=== PATIENT | female | born 1960 | race American Indian/Alaskan Native ===

== ENCOUNTER 2021-11-27 08:37 | Emergency (ER) | payer BC, OTHER ==
[2021-11-27] MEDS ORDERED: IBUPROFEN 600 MG TAB PO ONE (10:34)
[2021-11-27] MEDS ORDERED: ACETAMINOPHEN 325 MG TAB PO ONE (10:34)
--- NOTE | 2021-11-27 10:34 | Emergency Department Report ---
ED Fall HPI - General Chief Complaint: Fall Stated Complaint: FALL Time Seen by Provider: 11/27/21 09:55 Source: patient Mode of arrival: Ambulatory - History of Present Illness Initial Comments: 61 -[place] female with a past medical history of hypertension, hyperlipidemia, CVA, MA/CAD status post stent placement presents to the ER today with complaints of low back pain after accidental fall. Patient states that this occurred this morning. She states that she was trying to get out of her car when her right knee gave out causing her to lose her balance and fall. She states that she fell onto the left side. She reports no head injury. She states that since the fall she been having pain in her lower back. She states that the pain is worse with any movement. She states that she is never had issues with her back in the past. She is not currently on any blood thinners. She reports no bowel or bladder incontinence. She denies any saddle anesthesia, lower extremity weakness, abdominal pain or chest pain. MD Complaint: fall -: Sudden, This morning - Related Data Home Medications Medication Instructions Recorded Confirmed Last Taken FLUoxetine [PROzac] 10 mg PO QDAY 01/17/15 01/17/15 Unknown Pravastatin [Pravachol] 20 mg PO QHS 01/17/15 01/17/15 Unknown carvediloL [Coreg] 25 mg PO BID 01/17/15 01/17/15 Unknown lisinopriL [Zestril] 40 mg PO QDAY 01/17/15 01/17/15 Unknown Previous Rx's Medication Instructions Recorded Last Taken Type Butalb/Acetamin/Caff 50-325-40 1 each PO Q4H PRN #30 tablet 01/17/15 Unknown Rx [Fioricet] Ondansetron [Zofran Odt] 4 mg PO Q8HR PRN #30 tab.rapdis 01/17/15 Unknown Rx Acetaminophen/Codeine [Tylenol 1 tab PO Q6H PRN #12 tab 11/27/21 Unknown Rx /Codeine # 3 tab] Ibuprofen [Motrin] 400 mg PO Q8H PRN #30 tablet 11/27/21 Unknown Rx Metaxalone [Skelaxin] 800 mg PO TID #30 tablet 11/27/21 Unknown Rx Allergies Allergy/AdvReac Type Severity Reaction Status Date / Time diphenhydramine HCl Allergy Swelling Verified 01/17/15 10:20 [From Benadryl] ED Review of Systems ROS: Stated complaint: FALL Other details as noted in HPI Comment: All other systems reviewed and negative Constitutional: denies: chills, fever Eyes: denies: eye pain, eye discharge, vision change ENT: denies: ear pain, throat pain, dental pain, hearing loss, epistaxis, congestion Respiratory: denies: cough, shortness of breath, SOB with exertion, SOB at rest, wheezing Cardiovascular: denies: chest pain, palpitations, dyspnea on exertion, edema, syncope, paroxysmal nocturnal dyspnea Gastrointestinal: denies: abdominal pain, nausea, diarrhea, constipation, hematemesis, melena, hematochezia Genitourinary: denies: urgency, dysuria, frequency, hematuria, discharge, abnormal menses, dyspareunia Musculoskeletal: back pain Skin: denies: rash, lesions, change in color, change in hair/nails, pruritus Neurological: abnormal gait. denies: headache, weakness, numbness, paresthesias, confusion Psychiatric: denies: anxiety, depression, auditory hallucinations, visual hallucinations, homicidal thoughts, suicidal thoughts Hematological/Lymphatic: denies: easy bleeding, easy bruising, swollen glands ED Past Medical Hx - Past Medical History Hx Hypertension: Yes Hx CVA: Yes Hx Congestive Heart Failure: Yes - Surgical History Additional Surgical History: hysterectomy - Social History Smoking Status: Current Every Day Smoker Substance Use Type: None - Medications Home Medications: Home Medications Medication Instructions Recorded Confirmed Last Taken Type Butalb/Acetamin/Caff 50-325-40 1 each PO Q4H PRN #30 tablet 01/17/15 Unknown Rx [Fioricet] FLUoxetine [PROzac] 10 mg PO QDAY 01/17/15 01/17/15 Unknown History Ondansetron [Zofran Odt] 4 mg PO Q8HR PRN #30 tab.rapdis 01/17/15 Unknown Rx Pravastatin [Pravachol] 20 mg PO QHS 01/17/15 01/17/15 Unknown History carvediloL [Coreg] 25 mg PO BID 01/17/15 01/17/15 Unknown History lisinopriL [Zestril] 40 mg PO QDAY 01/17/15 01/17/15 Unknown History Acetaminophen/Codeine [Tylenol 1 tab PO Q6H PRN #12 tab 03/01/22 Unknown Rx /Codeine # 3 tab] Ibuprofen [Motrin] 400 mg PO Q8H PRN #30 tablet 11/27/21 Unknown Rx Metaxalone [Skelaxin] 800 mg PO TID #30 tablet 11/27/21 Unknown Rx ED Physical Exam - General Limitations: No Limitations General appearance: alert, in no apparent distress - Head Head exam: Present: atraumatic, normocephalic, normal inspection - Eye Eye exam: Present: normal appearance, PERRL, EOMI Pupils: Present: normal accommodation - Respiratory Respiratory exam: Present: normal lung sounds bilaterally. Absent: respiratory distress, wheezes, rales, rhonchi, stridor - Cardiovascular Cardiovascular Exam: Present: regular rate, normal rhythm, normal heart sounds - GI/Abdominal GI/Abdominal exam: Present: soft. Absent: distended, tenderness, guarding, rebound - Expanded Back Exam Expanded 1 - ttp; no swelling, deformity, step, erythema or bruising or open wounds. ROM of lumbar spine reduced secondary to pain - Neurological Exam Neurological exam: Present: alert, oriented X3, CN II-XII intact, abnormal gait (limping ) - Psychiatric Psychiatric exam: Present: normal affect, normal mood - Skin Skin exam: Present: intact ED Course Vital Signs 11/27/21 08:51 Temperature 98.5 F Pulse Rate 71 Respiratory 18 Rate Blood Pressure 141/81 O2 Sat by Pulse 98 Oximetry ED Medical Decision Making - Radiology Data Radiology results: report reviewed Patient: CHRISTI VAZQUEZ MR#: [id number] 16 : 1960 Acct:[id number] Age/Sex: 61 / F ADM Date: 11/27/21 Loc: ED Attending Dr: Ordering Physician: MARJ ANNA Date of Service: 11/27/21 Procedure(s): CT lumbar spine wo con Accession Number(s): [id number] cc: MARJ ANNA CT LUMBAR SPINE WITHOUT CONTRAST HISTORY: Fell down; low back pain COMPARISON: None TECHNIQUE: CT images of the lumbar spine were obtained without contrast. Sagittal and coronal reformats were post-processed.All CT scans at this location are performed using CT dose reduction for ALARA by means of automated exposure control. CONTRAST: None. FINDINGS: Alignment: Normal. No traumatic subluxation. Vertebrae: T12 vertebral body: Vertebral body height loss more towards the left side; 30% height loss; no adjacent soft tissue swelling on the left side; it is difficult to determine the age; is there localizing tenderness over the T12 spinous process Lumbar vertebral bodies: No fracture Sacrum: No fracture Disc Spaces: L1-L2: Normal L2-L3: Trace anterolisthesis; disc bulge extending laterally bilaterally; moderate ligamentous hypertrophy; mild thecal sac stenoses; mild foraminal stenoses L3-L4: Trace anterolisthesis; mild disc height loss on the right side; disc protrusion more towards the left subarticular zone and left foraminal zone; moderate ligamentous hypertrophy; moderate thecal sac stenoses L4-L5: Trace retrolisthesis; degenerative disc disease; diffuse disc bulge; mild ligamentous hypertrophy; mild thecal sac stenoses L5-S1: Tiago type II on the right; disc bulge Facet Joints:No significant abnormality. Additional Findings: None IMPRESSION: T12 vertebral body: Height loss on the left side; unable to determine the age; is there is localizing tenderness at this level Spondylotic changes at L3-L4, L4-L5 disc levels Signer Name: Yessica Newell MD Signed: 11/27/2021 11:43 AM Workstation Name: [id number] Transcribed By: BS Dictated By: Yessica Yoo MD Electronically Authenticated By: Yessica Yoo MD Signed Date/Time: 11/27/21 1143 DD/ 1127 TD/TT: - Medical Decision Making 1247: CT lumbar spine reviewed and shows: T12 vertebral body: Height loss on the left side; unable to determine the age; is there is localizing tenderness at this level Spondylotic changes at L3-L4, L4-L5 disc levels Pt resting comfortably in recliner. She is not currently in any acute distress. She does not have point ttp to area seen on CT. Discussed results with patient. She will be given referral info to PCP and applications specialist for further eval. She is currently neuro intact, she has no fever, bowel or bladder incontinence or saddle anesthesia. Her symptoms nor her CT findings concerning for cauda equina syndrome, acute epidural bleed, or any other emergent/acute process requiring further testing, emergent treatment, consultation or admission at this time. Her vital signs are stable. Patient expressed understanding for instructions and agree with plan. Patient was stable at time of discharge. Critical care attestation.: If time is entered above; I have spent that time in minutes in the direct care of this critically ill patient, excluding procedure time. ED Disposition Clinical Impression: Lumbar contusion, DDD (degenerative disc disease), lumbar Disposition: 01 HOME / SELF CARE / HOMELESS Is pt being admited?: No Does the pt Need Aspirin: No Condition: Stable Instructions: Contusion, [id number], Degenerative Disk Disease Additional Instructions: Take the medications as prescribed to help with pain. I recommend following up with PCP and or Orthospine specialist if your symptoms persist. Return to ED if worse. Prescriptions: Ibuprofen [Motrin] 400 mg PO Q8H PRN #30 tablet PRN Reason: pain Metaxalone [Skelaxin] 800 mg PO TID #30 tablet Acetaminophen/Codeine [Tylenol /Codeine # 3 tab] 1 tab PO Q6H PRN #12 tab PRN Reason: Pain , Severe (7-10) Referrals: LOLA OWUSU MD [Staff Physician] - 3-5 Days [facility] [Provider Group] - 3-5 Days ([facility]) Forms: Work/School Release Form(ED) Time of Disposition: 12:42
--- NOTE | 2021-11-27 11:47 | Cat Scan Report ---
CT LUMBAR SPINE WITHOUT CONTRAST HISTORY: Fell down; low back pain COMPARISON: None TECHNIQUE: CT images of the lumbar spine were obtained without contrast. Sagittal and coronal reform ats were post-processed.All CT scans at this location are performed using CT dose reduction for ALARA by means of automated exposure control. CONTRAST: None. FINDINGS: Alignment: Normal. No traumatic subluxation. Vertebrae: T12 vertebral body: Vertebral body height loss more towards the left side; 30% height loss; no adjace nt soft tissue swelling on the left side; it is difficult to determine the age; is there localizing tenderness over the T12 spinous process Lumbar vertebral bodies: No fracture Sacrum: No fracture Disc Spaces: L1-L2: Normal L2-L3: Trace anterolisthesis; disc bulge extending laterally bilaterally; moderate ligamentous hypert rophy; mild thecal sac stenoses; mild foraminal stenoses L3-L4: Trace anterolisthesis; mild disc height loss on the right side; disc protrusion more towards t he left subarticular zone and left foraminal zone; moderate ligamentous hypertrophy; moderate thecal sac stenoses L4-L5: Trace retrolisthesis; degenerative disc disease; diffuse disc bulge; mild ligamentous hypertro phy; mild thecal sac stenoses L5-S1: Tiago type II on the right; disc bulge Facet Joints:No significant abnormality. Additional Findings: None IMPRESSION: T12 vertebral body: Height loss on the left side; unable to determine the age; is there is localizing tenderness at this level Spondylotic changes at L3-L4, L4-L5 disc levels Signer Name: Yessica Newell MD Signed: 11/27/2021 11:43 AM Workstation Name: [id number]
[2021-11-27 13:56] VITALS: BP 163/85
== END 2021-11-27 13:56 | disposition home or self-care (01) ==
LOC: ED 08:37
DX: S30.0XXA Contusion of lower back and pelvis, initial encounter (principal); M51.36 Other intervertebral disc degeneration, lumbar region; I11.0 Hypertensive heart disease with heart failure; I50.9 Heart failure, unspecified; Z98.890 Other specified postprocedural states; Z91.09 Other allergy status, other than to drugs and biological substances; F17.200 Nicotine dependence, unspecified, uncomplicated; W19.XXXA Unspecified fall, initial encounter; Y93.9 Activity, unspecified; Y92.89 Other specified places as the place of occurrence of the external cause; Y99.8 Other external cause status
CPT/HCPCS: 72131; 99283